=== PATIENT | female | born 2000 | race Caucasian/White ===

== ENCOUNTER 2019-12-06 14:59 | Emergency (ER) | payer SELFPAY ==
[2019-12-06 15:11] VITALS: TEMP 98.5; BMI 18.9
--- NOTE | 2019-12-06 15:13 | PDOC ---
History of Present Illness - General Chief Complaint: Vaginal Bleeding Stated Complaint: Vaginal Bleeding Time Seen by Provider: 12/06/19 15:12 - History of Present Illness Initial Comments: 12/06/19 15:28 19 yo F A1 currently around 5w6d (LMP 10/16/2019), PMH asthma, presenting with vaginal bleeding. Notably, patient was seen yesterday at [facility] emergency room with vaginal spotting, which is when she found out that she was . Beta-hCG was 3180 and she had a gestational sac with no pole, causing concern for threatened . Today, she was having a bowel movement when she passed a large clot. She grew concerned that it might be the fetus, so she came into the emergency room. Notes that she was diagnosed with ringworm in her left arm yesterday, but the medication was sent to a pharmacy in [place] and she lives in [place]. Asks that we send the script again. Denies CP, SOB, abd pain, urinary symptoms, DEXTER, N/V, fevers/chills, constipation /diarrhea. Not actively bleeding currently. Past History - Past Medical History Allergies/Adverse Reactions: Allergies Allergy/AdvReac Type Severity Reaction Status Date / Time No Known Allergies Allergy Verified 12/06/19 15:08 Home Medications: Ambulatory Orders Clotrimazole [Ringworm] 14.2 gm TP BID #1 cream..g. 12/06/19 CVA: No COPD: No - Psycho Social/Smoking Cessation Hx Smoking History: Never smoked Review of Systems - Review of Systems Comments:: 12/06/19 15:31 GENERAL/CONSTITUTIONAL: No fever or chills. No weakness. HEAD, EYES, EARS, NOSE AND THROAT: No change in vision. No ear pain or discharge. No sore throat. CARDIOVASCULAR: No chest pain or shortness of breath. RESPIRATORY: No cough, wheezing, or hemoptysis. GASTROINTESTINAL: No nausea, vomiting, diarrhea or constipation. GENITOURINARY: No dysuria, frequency, or change in urination. Passed vaginal clots. MUSCULOSKELETAL: No joint or muscle swelling or pain. No neck or back pain. SKIN: No rash NEUROLOGIC: No headache, vertigo, loss of consciousness, or change in strength/ sensation. ENDOCRINE: No increased thirst. No abnormal weight change. HEMATOLOGIC/LYMPHATIC: No anemia, easy bleeding, or history of blood clots. ALLERGIC/IMMUNOLOGIC: No hives or skin allergy *Physical Exam - Vital Signs Last Vital Signs Temp Pulse Resp BP Pulse Ox 98.5 F 74 16 100/61 100 12/06/19 15:09 12/06/19 15:09 12/06/19 15:09 12/06/19 15:09 12/06/19 15:09 - Physical Exam 12/06/19 15:32 Gen: well-developed, well-nourished, NAD Neuro: AAOX4, CN II-XII intact, FTN intact, EOMI, PERRLA, 5/5 strength, SILT HEENT: atraumatic, normocephalic, dry mucous membranes Neck: trachea midline, supple CV: regular rate, regular rhythm, no murmurs, rubs, or gallops Pulm: CTA b/l, no wheezing Abd: soft, non-distended, non-tender : pooled blood in the vault, closed os, no CMT or adnexal tenderness MSK: full ROM, intact pulses Extr: no edema, no deformities Skin: warm, dry, ringworm in L proximal arm ED Treatment Course - LABORATORY CBC & Chemistry Diagram: 12/06/19 15:54 12/06/19 15:54 Medical Decision Making - Medical Decision Making 12/06/19 15:33 Concern for potential complete . - CBC, CMP - Beta-hCG quant - UA/UC - TVUS - antifungal treatment for ringworm - likely dc for OBGYN follow up 12/06/19 16:52 Beta-hCG 1778.3, lower than yesterday, consistent with . Will get TVUS to confirm passage of gestational sac. 12/06/19 17:17 Blood type is O positive, Rho Lena not needed. 12/06/19 19:16 TVUS without intrauterine . Will dc with OBGYN follow-up. Discharge - Discharge Information Problems reviewed: Yes Clinical Impression/Diagnosis: Miscarriage Condition: Stable Disposition: HOME - Additional Discharge Information Prescriptions: Clotrimazole [Ringworm] 14.2 gm TP BID #1 cream..g. - Follow up/Referral Referrals: Shabbir Vaughn MD [Staff Physician] - - Patient Discharge Instructions Patient Printed Discharge Instructions: DI for Miscarriage Additional Instructions: You were seen with vaginal bleeding. Your labs were concerning for a downtrending beta-hCG, concerning for a miscarriage. Your ultrasound did not show a fetus inside the uterus, consistent with a miscarriage. Please follow up with your primary care doctor and your OBGYN within one week. Return to the ED if you develop worsening symptoms. - Post Discharge Activity
[2019-12-06 15:59] LABS: BASO % 0.5 % (0-2.0); EOS % 1.7 % (0-4.5); HEMATOCRIT 37.1 % (32.4-45.2); HEMOGLOBIN 12.3 GM/dL (10.7-15.3); LYMPH % 38.9 % (8-40); MCH 30.7 pg (25.7-33.7); MCHC 33.1 g/dl (32.0-36.0); MEAN CELL VOLUME 92.8 fl (80-96); MEAN PLT VOLUME 9.4 fl (7.5-11.1); MONO % 7.8 % (3.8-10.2); NEUT % 51.1 % (42.8-82.8); PLATELET COUNT 263 K/MM3 (134-434); RBC 3.99 M/mm3 (3.60-5.2); RDW 13.6 % (11.6-15.6); WHITE BLOOD COUNT 6.9 K/mm3 (4.0-10.0)
[2019-12-06 16:01] LABS: EPI CELLS 3.6 /HPF (0-5/HPF); HYALINE CASTS 6 /lpf (0-8); URINE APPEARANCE CLEAR; URINE BACTERIA 9.5 /hpf (NEGATIVE); URINE BILIRUBIN NEGATIVE (NEGATIVE); URINE COLOR YELLOW; URINE GLUCOSE (UA) NEGATIVE (NEGATIVE); URINE KETONE NEGATIVE (NEGATIVE); URINE LEUK ESTERASE NEGATIVE (NEGATIVE); URINE NITRITE NEGATIVE (NEGATIVE); URINE PROTEIN TRACE (NEGATIVE); URINE RBC 231 /hpf (0-4); URINE WBC 3 /hpf (0-5)
--- NOTE | 2019-12-06 16:09 | PDOC ---
Attending Attestation - Resident Resident Name: GarnerGreg persaud - ED Attending Attestation I have performed the following: I have examined & evaluated the patient, The case was reviewed & discussed with the resident, I agree w/resident's findings & plan, Exceptions are as noted - HPI HPI: 12/06/19 16:05 19 F , @ 5w6d, presenting to ED with vaginal bleeding. Pt was seen at [facility] yesterday for spotting, was found to be with HCG 3180. TVUS showed yolk sac with no pole. Pt states that today she had increased bleeding and passage of clot. Notes lower abdominal cramps that feel like her usual menstrual period. Denies F/C. Denies flank pain. Denies dysuria. - Physicial Exam PE: 12/06/19 16:08 "GENERAL: Awake, alert, and fully oriented, in no acute distress. HEAD: No signs of trauma EYES: PERRLA, EOMI, sclera anicteric, conjunctiva clear ENT: Auricles normal inspection, hearing grossly normal, nares patent, oropharynx clear without exudates. Moist mucosa NECK: Nontender, no stepoffs, Normal ROM, supple, no lymphadenopathy, JVD, or masses LUNGS: Breath sounds equal, clear to auscultation bilaterally. No wheezes, and no crackles HEART: Regular rate and rhythm, normal S1 and S2, no murmurs, rubs or gallops ABDOMEN: Soft, nontender, normoactive bowel sounds. No guarding, no rebound. No masses EXTREMITIES: Normal range of motion, no edema. No clubbing or cyanosis. No cords, erythema, or tenderness NEUROLOGICAL: Cranial nerves II through XII intact. 5/5 strength and sensation in all extremities, Normal speech, normal gait, normal cerebellar function SKIN: Warm, Dry, normal turgor, no rashes or lesions noted. - Medical Decision Making 12/06/19 16:09 19 F with vaginal bleeding at 6 wks. Likely spontaneous ab. - Labs, HCG, T&S - TVUS Labs wnl TVUS unremarkable HCG downtrending, likely spontaneous Pt is well appearing, with normal vitals. Clinically stable for DC at this time. I discussed the physical exam findings, ancillary test results and final diagnoses with the patient. I answered all of the patient's questions. The patient was satisfied with the care received and felt comfortable with the discharge plan and treatment plan. The patient agrees to follow up with the primary care physician within 24-72 hours.
[2019-12-06 16:50] LABS: ALBUMIN 3.6 g/dl (3.4-5.0); BILIRUBIN,TOTAL 0.2 mg/dL (0.2-1); BLOOD UREA NITROGEN 7.2 mg/dL (7-18); CALCIUM 8.4 mg/dL (8.5-10.1); CREATININE 0.5 mg/dL (0.55-1.3); POTASSIUM 3.6 mmol/L (3.5-5.1); TOT PROT 7.3 g/dl (6.4-8.2)
[2019-12-06 19:35] VITALS: BP 105/74; PULSE 82
== END 2019-12-06 19:34 | disposition home or self-care (01) ==
LOC: JER 14:59
DX: O26.891 Other specified pregnancy related conditions, first trimester (principal); O02.1 Missed abortion; Z3A.01 Less than 8 weeks gestation of pregnancy; B35.8 Other dermatophytoses
CPT/HCPCS: 36415; 76817-TC; 80053; 81003; 84702; 84703; 85025; 86850; 86900; 86901; 87086; 99283-25

== ENCOUNTER 2020-08-13 19:47 | Emergency (ER) | payer OTHER ==
--- OUTSIDE RECORDS SUMMARY | 2020-08-13 20:02 | XMS ---
:2000 Author Organization [facility] Care Team Providers Name Role Phone FINN ALVAREZ Unavailable Unavailable Re-disclosure Warning The records that you are about to access may contain information from federally- assisted alcohol or drug abuse programs. If such information is present, then the following federally mandated warning applies: This information has been disclosed to you from records protected by federal confidentiality rules (42 CFR part 2). The federal rules prohibit you from making any further disclosure of this information unless further disclosure is expressly permitted by the written consent of the person to whom it pertains or as otherwise permitted by 42 CFR part 2. A general authorization for the release of medical or other information is NOT sufficient for this purpose. The Federal rules restrict any use of the information to criminally investigate or prosecute any alcohol or drug abuse patient.The records that you are about to access may contain highly sensitive health information, the redisclosure of which is protected by Article 27-F of the [facility] Public Health law. If you continue you may haveaccess to information: Regarding HIV / AIDS; Provided by facilities licensed or operated by the [facility] Office of Mental Health; or Provided by the [facility] Office for People With Developmental Disabilities. If such information is present, then the following [facility] mandated warning applies: This information has been disclosed to you from confidential records which are protected by state law. State law prohibits you from making any further disclosure of this information without the specific written consent of the person to whom it pertains, or as otherwise permitted by law. Any unauthorized further disclosure in violation of state law may result in a fine or longterm sentence or both. A general authorization for the release of medical or other information is NOT sufficient authorization for further disclosure. Encounters Encounter Providers Location Date Indications Data Source(s ) Outpatient Attender: ANTONIO 05/13/2020 W10.8XXA [facility] PATRICEAdmitter: 11:45:00 PM Health Care FINN ALVAREZ EDT - Corpora tion 05/14/2020 05:40:00 PM EDT W10.8XXA Emergency H 06/18/2019 01:26:00 AM EDT [facility] Medications Medication Brand Start Product Dose Route Administrative Pharmacy [facility] Indications Reaction Description Data Name Date Form Instructions Instructions Source(s) Potassium Potass UNK active Potassiu m [place] Chloride 1 ium 2019 meq Chloride 10 r [facility] Chlor 12:33: mEq/100 mL Healt h de 1 41 AM Injection 10 Care EDT meq IVPB Corporatio n Medication administered onsite Potassium Potassium 05/14/2020 40 UNK active P otassium [place] Chloride O Chloride O 12:33:13 AM meq C hloride [facility] EDT Oral 40 meq Care PO Corporation Medication administered onsite Lidocaine lidocaine HCl 10 mL completed Lidocaine [facility] Hydrochloride 20 (Lidocaine Vi scous Medical MG/ML Mucous Viscous) 2 % Center Membrane Topical Solution, Solution Ordered By: lidocaine HCl Sergo Hilton, (Lidocaine MDDirections: 10 Viscous) 2 % mL oral twice a Solution, day PRN pain Ordered By: Sergo Hilton MDDirections: 10 mL oral twice a day PRN pain Ibuprofen 600 MG ibuprofen 600 mg 1 completed [facility] Oral Tablet Tablet, Ordered Medical ibuprofen 600 mg By: Serog Austin Tablet, Ordered Yobani, By: Sergo MDDirections: 1 Yobani, tablet oral MDDirections: 1 every six hours tablet oral PRN pain every six hours PRN pain terconazole 4 Terconazole [0.4 completed [place] MG/ML Vaginal % Cream]: 1 [facility] Cream Application Care Terconazole [0.4 Vaginal BEDTIME Corporation % Cream]: 1 Application Vaginal BEDTIME Vitamin [id number] completed [place] ( [facility] Johbtxlm-Yj-Lnf- Car e Fe-FA) [Tablet]: Cor poration 1 Tablet Oral DAILY Acetaminophen Acetaminophen completed [place] 325 MG Oral [325 mg Tablet]: [facility] Tablet 650 MG Oral Care Acetaminophen Q6HPRN PRN Pain Corporation [325 mg Tablet]: 650 MG Oral Q6HPRN PRN Pain Azithromycin 250 AZITHromycin 250 1 completed [facility] Ann MG Oral Tablet mg Tablet, Medical AZITHromycin 250 Ordered By: Center mg Tablet, Sergo Hilton, Ordered By: MDDirections: 1 Omiel Hilton, tablet oral MDDirections: 1 daily tablet oral daily Insurance Providers Payer name Policy type Policy ID Covered Covered democrat's Policy P dotty / Coverage democrat ID relationship to [facility] type [facility] [employer] [id number] SP [id number] R UNK UNK UNK UNK UNK UNK SELF PAY SP INSURANCE HMO CARL O [id number] [employer] Problems, Conditions, and Diagnoses Code Display Name Description Problem Type Effective Data Sour ce(s) Dates Z20.828 Contact with and CONTACT W [facility] TO OTH 11:45:00 PM [facility] exposure to other VIRAL EDT Care viral communicable COMMUNICABLE Rand oration diseases DISEASES J45.909 Unspecified UNSPECIFIED Diagnosis 05/13/2020 [place] asthma, ASTHMA, 11:45:00 [facility] uncomplicated UNCOMPLICATED EDT Care [place] Y99.8 Other external OTHER EXTERNAL Diagnosis 05/13/2020 [facility] cause status CAUSE STATUS 11:45:00 PM Critical access hospital EDT Care [facility] Y92.89 Other specified OTH PLACES THE Diagnosis 05/13/[facility] OF 11:45:[address] [facility] [address] of OCCURRENCE OF THE EDT Care occurrence of the EXTERNAL CAUSE Cor poration external cause W10.9XXA Fall (on) (from) FALL (ON) (FROM) Diagnosis 05/13/2020 [facility] unspecified stairs UNSPECIFIED 11:45:00 PM Coun ty Health and steps, initial STAIRS AND STEPS, EDT Care encounter INIT [employer] Z3A.22 22 weeks gestation 22 WEEKS Diagnosis 05/13/2020 [place] al[place]andra of GESTATION OF 11:45:00 PM [facility] brandi EDT Care [place] R10.32 Left lower LEFT LOWER Diagnosis 05/13/2020 [place] quadrant pain QUADRANT PAIN 11:45:00 PM [facility] EDT Care [place] S93.401A Sprain of SPRAIN OF Diagnosis 05/13/2020 [place] unspecified UNSPECIFIED 11:45:00 PM [facility] Heal th ligament of right LIGAMENT OF RIGHT EDT Care ankle, initial ANKLE, INIT Corporati on encounter ENCNTR O26.892 Other specified OTH Diagnosis 05/13/2020 [facility] related RELATED 11:45:00 PM [facility] conditions, second CONDITIONS, EDT Care trimester SECOND TRIMESTER Corporat ion T14.90XA Injury, INJURY, Diagnosis 05/13/2020 [place] unspecified, UNSPECIFIED, 11:45:00 PM [facility] brandi initial encounter INITIAL ENCOUNTER EDT Care [place] J02.9 Acute pharyngitis, ACUTE Diagnosis 06/18/2019 [facility] unspecified PHARYNGITIS, 01:26:00 AM Medical Ce nter UNSPECIFIED EDT R50.9 Fever, unspecified FEVER, Diagnosis 06/18/2019 [place] UNSPECIFIED 01:26:00 AM Medical Cent er EDT Results ID Date Data Source [id number] 05/14/2020 02:55:00 PM EDT [facility] [id number] Corporation Name Value Range Interpretation Description Data Sup porting Code Source(s) Document(s ) Leukocytes 6.4 k/mm3 4.5-11 <td> 05/14/2020 [place] [#/volume] in .5 14:55</td><td> [facility] Blood by k/mm3 WBC </td><td> Health Care Automated count Corporation 6.4
(4.5-11.5) k/mm3 </td> Erythrocyte 94.8 fL 80.0-9 <td> 05/14/2020 [place] mean 6.0 fL 14:55</td><td> [facility] corpuscular MCV </td><td> Health Care volume [Entitic Corporation volume] by 94.8 Automated count
(80.0-96.0) fL </td> Erythrocyte 33.4 % 32.0-3 <td> 05/14/2020 [place] mean 6.0 % 14:55</td><td> County corpuscular MCHC </td><td> Health Care hemoglobin Corporation concentration 33.4 [Mass/volume] in Blood from
Fetus by (32.0-36.0) % Automated count </td> Erythrocytes 3.63 m/mm3 3.60-5 <td> 05/14/2020 [facility] r [#/volume] in .10 14:55</td><td> County Blood m/mm3 RBC </td><td> Health Care Spritz 3.63
(3.60-5.10) m/mm3 </td> Hemoglobin 11.5 g/dL 11.5-1 <td> 05/14/2020 [place] [Mass/volume] 4.5 14:55</td><td> [facility] in Blood g/dL HGB </td><td> Health Care Spritz 11.5
(11.5-14.5) g/dL </td> Erythrocyte 12.9 % 11.5-1 <td> 05/14/2020 [place] distribution 4.5 % 14:55</td><td> County width [Entitic RDW </td><td> Health Car e volume] by Spritz Automated count 12.9
(11.5-14.5) % </td> Hematocrit 34.4 % 36.0-4 <td> 05/14/2020 [place] [Volume 7.0 % 14:55</td><td> County Fraction] of HCT Health Care Blood by </td><td><Kiio Automated count raph styleCode="Bold "> 34.4 L </paragraph>
(36.0-47.0) % </td> Erythrocyte 31.7 pg 27.0-3 <td> 05/14/2020 [place] mean 1.5 pg 14:55</td><td> County corpuscular MCH Health Care hemoglobin </td><td><Kiio [Entitic mass] raph by Automated styleCode="Bold count "> 31.7 H </paragraph>
(27.0-31.5) pg </td> Monocytes/Leuko 6.1 % 0.0-11 <td> 05/14/2020 [facility] cytes [Pure .0 % 14:55</td><td> County number Monocytes. Health Care fraction] in </td><td> Corporation Blood by Automated count 6.1
(0.0-11.0) % </td> Lymphocytes 33.7 % 18.0-5 <td> 05/14/2020 [place] [#/volume] in 3.0 % 14:55</td><td> [facility] Blood by Lymphocytes [facility] Care Automated count </td><td> Spritz 33.7
(18.0-53.0) % </td> Platelets 256 k/mm3 160-41 <td> 05/14/2020 [place] [#/volume] in 0 14:55</td><td> [facility] Blood by k/mm3 Platelet Count Health Care Automated count </td><td> Spritz 256
(160-410) k/mm3 </td> Basophils 0.2 % 0.0-2. <td> 05/14/2020 [place] [#/volume] in 0 % 14:55</td><td> [facility] Blood by Basophils [facility] Care Automated count </td><td> Spritz 0.2
(0.0-2.0) % </td> Basophils+Eosin 0.9 % 0.0-5. <td> 05/14/2020 [facility] ophils+Monocyte 0 % 14:55</td><td> County s [#/volume] in Eosinophils Health Care Blood by </td><td> Spritz Automated count 0.9
(0.0-5.0) % </td> Platelet mean 10.5 fL 9.8-12 <td> 05/14/2020 [facility] r volume [Entitic .8 fL 14:55</td><td> County volume] in MPV </td><td> Health Care Blood by Spritz Automated count 10.5
(9.8-12.8) fL </td> Potassium 4.2 mEq/L 3.5-5. <td> 05/14/2020 [place] [Moles/volume] 1 14:55</td><td> County in Serum or mEq/L Potassium-Serum Health Care Plasma </td><td> Spritz 4.2
(3.5-5.1) mEq/L
Note Significant Change in Values

(3.5-5.1) mEq/L </td> Sodium 136 mEq/L 135-14 <td> 05/14/2020 [place] [Moles/volume] 5 14:55</td><td> County in Serum or mEq/L Sodium-Serum Health Care Plasma </td><td> Spritz 136
(135-145) mEq/L </td> Neutrophils [#] 58.8 % 36.0-7 <td> 05/14/2020 [facility] in Body fluid 3.0 % 14:55</td><td> County by Manual count Neutrophils Health Care </td><td> Spritz 58.8
(36.0-73.0) % </td> Chloride 109 mEq/L 98-107 <td> 05/14/2020 [place] [Moles/volume] mEq/L 14:55</td><td> County in Serum or Chloride Health Care Plasma </td><td><dilia Spritz raph styleCode="Bold "> 109 H </paragraph>
(98-107) mEq/L </td> Immature 0.3 % 0.0-0. <td> 05/14/2020 [place] granulocytes/10 5 % 14:55</td><td> County 0 leukocytes in IG% </td><td> [facility] re Blood by Spritz Automated count 0.3
(0.0-0.5) %
The IG fraction represents metamyelocytes, myelocytes and/or
promyelocytes and is only reported as part of the automated
differential when found at a percentage of less than 6.
If higher than 6%, a manual differential will be performed.

(0.0-0.5) % </td> Glucose 87 mg/dL 70-105 <td> 05/14/2020 [place] [Mass/volume] mg/dL 14:55</td><td> County in Blood Glucose-Serum Health Care </td><td> Corporation 87
(70-105) mg/dL </td> Aspartate 14 U/L 4-35 <td> 05/14/2020 [place] aminotransferas U/L 14:55</td><td> County e [Enzymatic AST (SGOT) Health Care activity/volume </td><td> Spritz ] in Serum or Plasma 14
(4-35) U/L </td> Bilirubin.total < 0.2 <td> 05/14/2020 [facility] [Mass/volume] 14:55</td><td> County in Blood Bilirubin - Health Care Total Corporation </td><td> < 0.2
(0.2-1.3) mg/dL </td> Creatinine 0.58 mg/dL 0.57-1 <td> 05/14/2020 [place] [Moles/volume] .11 14:55</td><td> County in Serum or mg/dL Creatinine. Health Care Plasma </td><td> Spritz 0.58
(0.57-1.11) mg/dL </td> Urea nitrogen 4 mg/dL 6-22 <td> 05/14/2020 [facility] r [Mass/volume] mg/dL 14:55</td><td> County in Blood BUN Health Care </td><td><Kiio raph styleCode="Bold "> 4 L </paragraph>
(6-22) mg/dL </td> Carbon dioxide, 21 mEq/L 22-30 <td> 05/14/2020 [facility] total mEq/L 14:55</td><td> [facility] [Moles/volume] CO2 Health Care in Serum or </td><td><Kiio Plasma raph styleCode="Bold "> 21 L </paragraph>
(22-30) mEq/L </td> Alanine 11 U/L 6-55 <td> 05/14/2020 [place] aminotransferas U/L 14:55</td><td> County e [Enzymatic ALT (SGPT) Health Care activity/volume </td><td> Spritz ] in Serum or Plasma 11
(6-55) U/L </td> Anion gap in 6 mEq/L 7-13 <td> 05/14/2020 [place] Serum or Plasma mEq/L 14:55</td><td> [facility] Anion Gap Health Care </td><td><Kiio raph styleCode="Bold "> 6 L </paragraph>
(7-13) mEq/L </td> Hemolysis index No <td> 05/14/2020 [facility] of Serum or Hemolysis 14:55</td><td> [facility] Plasma Hemolysis Index Health Care </td><td> [place] No Hemolysis
</td> Globulin 3.2 gm/dL 2.9-4. <td> 05/14/2020 [place] [Mass/volume] 0 14:55</td><td> [facility] in Serum gm/dL Globulin Health Care </td><td> Sp[place] 3.2
(2.9-4.0) gm/dL </td> Proteins - 6.2 g/dL 5.6-7. <td> 05/14/2020 [place] Total 5 g/dL 14:55</td><td> [facility] Proteins - Health Care Total Corporation </td><td> 6.2
(5.6-7.5) g/dL </td> Calcium 8.5 mg/dL 8.6-10 <td> 05/14/2020 [place] [Mass/volume] .2 14:55</td><td> [facility] in Blood mg/dL Calcium Health Care </td><td><Kiio raph styleCode="Bold "> 8.5 L </paragraph>
(8.6-10.2) mg/dL </td> Albumin 3.0 g/dL 3.4-4. <td> 05/14/2020 [place] [Mass/volume] 8 g/dL 14:55</td><td> County in Serum or Albumin Health Care Plasma </td><td><dilia Corporation raph styleCode="Bold "> 3.0 L </paragraph>
(3.4-4.8) g/dL </td> Icteric index Not <td> 05/14/2020 [facility] r of Serum or Icteric 14:55</td><td> [facility] Plasma Icteric Index Health Care </td><td> [facility] Not Icteric
</td> Prothrombin 11.9 secs 9.8-12 <td> 05/13/2020 [place] time (PT) .0 23:10</td><td> [facility] secs Prothrombin Health Care Time. [facility] </td><td> 11.9
(9.8-12.0) secs </td> Lipemic index No Lipemia <td> 05/14/2020 [facility] er of Serum or 14:55</td><td> [facility] Plasma Lipemia Index Health Care </td><td> [facility] No Lipemia
</td> Phosphate 3.4 mg/dL 2.3-4. <td> 05/14/2020 [place] [Mass/volume] 7 14:55</td><td> County in Serum or mg/dL Inorganic Health Care Plasma Phosphorus [facility] </td><td> 3.4
(2.3-4.7) mg/dL </td> Amylase 26 U/L 22-100 <td> 05/13/2020 [place] [Enzymatic U/L 23:10</td><td> County activity/volume Amylase Level Health Car e ] in Serum or </td><td> Corporation Plasma 26
(22-100) U/L </td> aPTT panel - 39.6 secs 25.0-3 <td> 05/13/2020 [place] Platelet poor 2.0 23:10</td><td> [facility] plasma secs Partial [facility] Care Thromboplastin [facility] Time </td><td><dilia raph styleCode="Bold "> 39.6 H </paragraph>
(25.0-32.0) secs </td> Magnesium 1.6 mg/dL 1.6-2. <td> 05/14/2020 [place] [Mass/volume] 6 14:55</td><td> County in Serum or mg/dL Magnesium Level Health Care Plasma </td><td> Corporation 1.6
(1.6-2.6) mg/dL </td> ID Date Data Source [id number] 05/13/2020 11:00:00 PM EDT [facility] [id number] Corporation Name Value Range Interpretation Description Data Source(s ) Supporting Code Document(s ) ABO-Rh Type O POS <td> [place] 05/13/2020 [facility] 23:00</td><td> Care ABO-Rh Type Corporation </td><td> O POS
</td> Antibody NEG <td> [place] Screen 05/13/2020 [facility] 23:00</td><td> Care Antibody Corporation Screen </td><td> NEG
</td> Specimen 05/16/20 <td> [place] expiration 20 23:59 05/13/2020 [facility] date of Blood 23:00</td><td> Care Specimen Corporation Expiration Date </td><td> 05/16/2020 23:59
</td> ID Date Data Source [id number] 05/13/2020 12:00:00 AM EDT [facility] Name Value Range Interpretation Code Description Data Sandy rce(s) Supporting Document(s ) SARS-COV-2 [place] RNA RT-PCR [facility] This lab was ordered by [facility] and reported by [facility]. ID Date Data Source [id number] 06/18/2019 02:05:00 AM EDT [facility] Name Value Range Interpretation Description Data Sup porting Code Source(s) Document(s ) UNK <item><[facility]an [facility] styleCode="[facility] Medical ld">Culture Center Status </content>
<table><tbo dy><tr><td>Sp ecimen Number:</td>< td>[id number]< /td></tr><tr> <td>Sample Collection Date/Time: </td><td>06/18 2:05 AM</td></tr>< tr><td>Specim en Source:</td>< td>THROAT</td ></tr><tr><td >Culture Report:</td>< td>Culture in progress </td></tr><tr ><td>Throat-N ose Culture:</td> <td>Collectio n Plate Date: 06/18/2019 02:12 </td></tr><tr ><td>Culture Status:</td>< td>Preliminar y </td></tr></t body></table> </item> UNK <item><conten [facility] styleCode="[facility] Medical ld">Culture Center Report </content>
<table><tbo dy><tr><td>Sp ecimen Number:</td>< td>[id number]< /td></tr><tr> <td>Sample Collection Date/Time: </td><td>06/18 2:05 AM</td></tr>< tr><td>Specim en Source:</td>< td>THROAT</td ></tr><tr><td >Throat-Nose Culture:</td> <td>Collectio n Plate Date: 06/18/2019 02:12 </td></tr><tr ><td>Culture Status:</td>< td>Preliminar y </td></tr><tr ><td>Culture Report:</td>< td>Culture in progress </td></tr></t body></table> </item> Streptococcus NEGATIVE <item><eleni [place]arez [Presence] in styleCode="[facility] Medical Unspecified ld">Rapid Center specimen by Strep A Immunoassay </content>
<table><tbo dy><tr><td>Sp ecimen Number:</td>< td>[id number]< /td></tr><tr> <td>Sample Collection Date/Time: </td><td>06/18 2:05 AM</td></tr>< tr><td>Specim en Source:</td>< td>THROAT</td ></tr><tr><td >Rapid Strep A:</td><td>NE GATIVE </td></tr></t body></table> </item> Procedure Social History Code Duration Value Status Description Data Source(s ) Smoking 06/18/2019 Denies Ever completed Denies Ever Smoked [facility] 01:53:00 AM EDT Smoked Medical C enter Smoking 06/18/2019 Denies Ever completed Denies Ever Smoked [facility] 01:31:00 AM EDT Smoked Medical C enter Smoking Never smoker completed Never smoker [facility] Vital Signs ID Date Data Source UNK Name Value Range Interpretation Code Description Data Source(s) Diastolic blood 55 {} Normal (applies to 55 {} [place] pressure non-numeric results) Coun ty Health Care Corporati on Systolic blood 81 {} Normal (applies to 81 {} [place] pressure non-numeric results) Coun ty Health Care Corporati on First Respiration 18.0000 {} Normal (applies to 18.0000 {} [place] rate Set non-numeric results) Coun ty Health Care Corporati on Heart rate 69.0000 {} Normal (applies to 69.0000 {} [place] alessandra non-numeric results) Coun ty Health Care Corporati on Body temperature 97.4000 {} Normal (applies to 97.4000 {} [place] non-numeric results) Coun ty Health Care Corporati on wt - obtain Normal (applies to {} [facility] non-numeric results) Coun ty Health Care Corporati on weight - kg 55.9000 {} Normal (applies to 55.9000 {} [facility] non-numeric results) Coun ty Health Care Corporati on Body temperature 37.256336 37.891705 [facility] Respiratory rate 18 /min 18 /min [facility] Oxygen saturation 98 % 98 % [facility] in Arterial blood Medical Center by Pulse oximetry Heart rate 78 /min 78 /min [facility] Diastolic blood 98 mm[Hg] 98 mm[Hg] [facility] pressure Medical Center Systolic blood 128 mm[Hg] 128 mm[Hg] [facility] pressure Medical Center Body weight 58.569317 58.668648 kg [facility] Measured kg Medical Center Body temperature 37.459032 37.857563 [facility] Respiratory rate 19 /min 19 /min [facility] Oxygen saturation 100 % 100 % [facility] in Arterial blood Medical Center by Pulse oximetry Heart rate 88 /min 88 /min [facility] Diastolic blood 72 mm[Hg] 72 mm[Hg] [facility] pressure [facility] [place] Systolic blood 129 mm[Hg] 129 mm[Hg] [facility] pressure [facility] [place] Patient Treatment Plan of Care Planned Activity Planned Date Details Description Data Source (s) Potassium Chloride 1 05/14/2020 [facility] 12:33:41 AM Familytic Potassium Chloride O 05/14/2020 [facility] 12:33:13 AM Familytic Ibuprofen 600 MG Oral [facility] Lidocaine Hydrochloride [facility] Medical 20 MG/ML Mucous Membrane Dariana ter Topical Solution Azithromycin 250 MG Oral [facility]
[2020-08-13 20:18] VITALS: BMI 24.0
[2020-08-13] MEDS ORDERED: ACETAMINOPHEN INJECTION 100 ML IVPB ONE (20:20)
--- NOTE | 2020-08-13 20:24 | PDOC ---
History of Present Illness - General Chief Complaint: Syncope/Near Syncope Stated Complaint: PREG/FAINTED - History of Present Illness Initial Comments: HPI Pt is a 19yo F with PMH asthma who presents following syncopal episode. As per history provided by boyfriend - pt was walking in the store with him when she felt lightheaded and sat down. He brought her water after which she stood up and collapsed. At the time patient was reporting SOB, but boyfriend states that she has been SOB over the past few days. Pt states that earlier today she ate popeyes and drank a cup of red wine. Reports episode of NBNB emesis yesterday morning, denies further n/v. Reports history of low blood pressure and positional lightheadedness, denies history of syncopal episodes. Denies f/c, chest pain, States that her thus far has been uncomplicated. OB: [place] PMH: asthma PSH: denies Meds: vitamins Allergies: NKDA Social: denies tobacco, illicit drug use Review of Systems CONSTITUTIONAL: denies fever, chills, generalized weakness, malaise, loss of appetite HEENT: denies rhinorrhea, nasal congestion, sore throat, visual changes CARDIOVASCULAR: reports lightheadedness; denies chest pain, palpitations, irregular heart rate RESPIRATORY: reports SOB during episode; denies cough, wheezing, hemoptysis GASTROINTESTINAL: reports RLQ abdominal pain; denies nausea, vomiting, diarrhea, constipation, melena, hematochezia GENITOURINARY: denies dysuria, frequency, urgency, hesitancy, hematuria, flank pain, genital pain MUSCULOSKELETAL: reports back pain HEMATOLOGIC/IMMUNOLOGIC: denies easy bleeding, easy bruising NEUROLOGIC: denies headache, focal weakness or paresthesias, dizziness, unsteady gait, seizure, mental status changes, bladder or bowel incontinence SKIN: denies rash, itching, pallor PSYCHIATRIC: denies anxiety, depression, suicidal or homicidal ideation, hallucinations. Physical Exam General: awake, lethargic, in no acute distress, well developed, well nourished Head: normocephalic, atraumatic Eyes: PERRL, EOMI, anicteric sclera, conjunctiva clear ENT: hearing grossly normal, oropharynx clear without exudates, no nasal congestion, moist mucous membranes Neck: supple, normal ROM Lung: equal breath sounds b/l, CTA b/l, no crackles, wheezes; secretions requiring suctioning Heart: RRR, normal S1, S2, no murmurs appreciated Abdomen: soft, non tender, normoactive bowel sounds, no guarding, rebound, masses, left CVA tenderness Extremities: no edema, no erythema or tenderness, DP/PT pulses 2+ and symmetric Neuro: CN2-12 grossly intact, moves all extremities, normal speech, sensation intact Skin: warm, dry, normal skin turgor, capillary refill <2 seconds, no rashes or lesions noted MDM Pt is a 19yo F with PMH asthma who presents following syncopal episode. DDx including but not limited to: electrolyte abnormality, arrhythmia, Workup: labs, cxr, ekg TX: IV fluids EKG: normal sinus rhythm, HR 94bpm, GA 134ms, QRS 78ms, QTc 422ms On further reassessment, patient appears awake with increased alertness. States that she does not remember anything between walking in the store with her boyfriend to being at [facility]. Currently c/o back pain, will give Ofirmev. Labs: no leukocytosis, no anemia, normal VBG, electrolytes WNL, no LAURIE, LFT WNL, cardiac profile WNL UA with trace ketones UDS negative 08/13/20 21:56 Admission discussed with patient who agreed with plan Resident spoke with OB acetone button paster, Dr. Ramirez who recommended that patient go to tele floor. He will follow pt as consult Pt signed out to night team pending admission Disposition to be admitted Past History - Medical History Allergies/Adverse Reactions: Allergies Allergy/AdvReac Type Severity Reaction Status Date / Time No Known Allergies Allergy Verified 05/13/20 21:25 Home Medications: Ambulatory Orders Acetaminophen [Tylenol] 650 mg PO QID PRN #20 capsule 12/06/19 Clotrimazole [Ringworm] 14.2 gm TP BID #1 cream..g. 12/06/19 CVA: No COPD: No - Reproductive History Is Patient Now?: Yes (37 weeks) (#): 3 Para: 1 - Psycho-Social/Smoking History Smoking History: Never smoked Have you smoked in the past 12 months: No - Substance Abuse Hx (Audit-C & DAST Scrn) How often the patient has a drink containing alcohol: Monthly or less Number of drinks the patient has on a typical day: 1 or 2 How often the patient has six or more drinks on one occasion: Never Score: In Men: 4 or > Positive; In Women: 3 or > Positive: 1 Screen Result (Pos requires Nsg. Audit-10AR): Negative In the last yr the pt used illegal drug/Rx for NonMed reason: No Score: Yes response is considered Positive: 0 Screen Result (Positive result requires Nsg. DAST-10): Negative *Physical Exam - Vital Signs Last Vital Signs Temp Pulse Resp BP Pulse Ox 86 28 H 107/75 100 08/13/20 20:16 08/13/20 20:16 08/13/20 20:16 08/13/20 20:16 ED Treatment Course - LABORATORY CBC & Chemistry Diagram: 08/13/20 19:53 08/13/20 19:53 Discharge - Discharge Information Problems reviewed: Yes Clinical Impression/Diagnosis: Syncope Qualifiers: Syncope type: unspecified Qualified Code(s): R55 - Syncope and collapse Qualifiers: Weeks of gestation: 37 weeks Qualified Code(s): Z3A.37 - 37 weeks gestation of Condition: Stable Disposition: AGAINST MEDICAL ADVICE - Follow up/Referral - Patient Discharge Instructions - Post Discharge Activity
[2020-08-13 20:25] VITALS: TEMP 97.6
[2020-08-13] MEDS ORDERED: SODIUM CHLORIDE 0.9% 500 ML INFUS.BAG IV ONE (20:28)
[2020-08-13 20:35] LABS: BASO % 0.3 % (0-2.0); EOS % 0.5 % (0-4.5); HEMATOCRIT 35.9 % (32.4-45.2); HEMOGLOBIN 12.3 GM/dL (10.7-15.3); LYMPH % 32.6 % (8-40); MCH 32.4 pg (25.7-33.7); MCHC 34.3 g/dl (32.0-36.0); MEAN CELL VOLUME 94.3 fl (80-96); MEAN PLT VOLUME 9.4 fl (7.5-11.1); MONO % 5.7 % (3.8-10.2); NEUT % 60.9 % (42.8-82.8); PLATELET COUNT 231 K/MM3 (134-434); RDW 13.4 % (11.6-15.6); WHITE BLOOD COUNT 7.3 K/mm3 (4.0-10.0)
[2020-08-13 20:44] LABS: INR 0.97 (0.83-1.09); PROTHROMBIN TIME (PATIENT) 11.5 SEC (9.7-13.0)
--- NOTE | 2020-08-13 20:48 | PDOC ---
Attending Attestation - Resident Resident Name: Katina Araiza - ED Attending Attestation I have performed the following: I have examined & evaluated the patient, The case was reviewed & discussed with the resident, I agree w/resident's findings & plan, Exceptions are as noted - HPI HPI: 08/14/20 02:48 See resident HPI - Physicial Exam PE: 08/14/20 02:48 Agree with documented exam - Medical Decision Making 08/14/20 02:48 19F 37wk preg BIBEMS after witnessed syncopal episode, no convulsions, tongue biting, incontinence, denies toxic habits Broad ddx for syncope including cardiac, arrythmia, vasovagal, hypovolemia, tox f/u labs, ivf, continous monitor, re-eval tocography performed in ED, normal tracing dispo per clinical course, likely admit Note: The patient insists on leaving the emergency dept and is signing out against medical advice. The patient understands the risks and complications that may result from the refusal of medical care and admission which includes and permanent disability of herself and of her baby. The patient has the mental capacity of understanding the risks of refusing care and is capable of making an informed decision. The patient was instructed to return to the emergency department should she change her mind regarding medical care or should her condition worsen. The patient signed the Against Medical Advice form. Discharge - Discharge Information Problems reviewed: Yes Clinical Impression/Diagnosis: Syncope Qualifiers: Syncope type: unspecified Qualified Code(s): R55 - Syncope and collapse Qualifiers: Weeks of gestation: 37 weeks Qualified Code(s): Z3A.37 - 37 weeks gestation of Condition: Stable Disposition: AGAINST MEDICAL ADVICE - Follow up/Referral - Patient Discharge Instructions - Post Discharge Activity
[2020-08-13 20:58] LABS: COCAINE, UR NEGATIVE ng/ml (CUTOFF=300); OPIATES, URI NEGATIVE ng/ml (CUTOFF=300); PHENCYCLIDINE,URINE NEGATIVE ng/ml (CUTOFF=25); URINE AMPHETAMINES NEGATIVE ng/ml (CUTOFF=500); URINE BARBITURATES NEGATIVE ng/ml (CUTOFF=200); URINE BENZODIAZEPINES NEGATIVE ng/ml (CUTOFF=200)
[2020-08-13 20:59] LABS: VENOUS BASE EXCESS -5.3 mmol/L (-2-2); VENOUS O2 SATURATION 79.4 % (70-80); VENOUS PH 7.338 (7.310-7.410)
[2020-08-13 21:04] LABS: METHADONE, UR NEGATIVE ng/ml (CUTOFF=300)
[2020-08-13 21:06] LABS: PH,URINE 6.5 (5.0-8.0); URINE APPEARANCE CLOUDY; URINE BILIRUBIN NEGATIVE (NEGATIVE); URINE COLOR YELLOW; URINE GLUCOSE (UA) NEGATIVE (NEGATIVE); URINE KETONE TRACE (NEGATIVE); URINE LEUK ESTERASE NEGATIVE (NEGATIVE); URINE NITRITE NEGATIVE (NEGATIVE); URINE PROTEIN NEGATIVE (NEGATIVE); URINE UROBILINOGEN 0.2 mg/dL (0.2-1.0)
[2020-08-13 21:07] LABS: ALBUMIN 2.8 g/dl (3.4-5.0); ALK PHOS 108 U/L (45-117); ANION GAP 9 MMOL/L (8-16); BILIRUBIN,TOTAL 0.2 mg/dL (0.2-1); BLOOD UREA NITROGEN 9.7 mg/dL (7-18); CALCIUM 8.3 mg/dL (8.5-10.1); CHLORIDE 106 mmol/L (98-107); CO2 23 mmol/L (21-32); CREATININE 0.6 mg/dL (0.55-1.3); GLUCOSE,RANDOM 78 mg/dL (74-106); MAGNESIUM 1.9 mg/dL (1.8-2.4); POTASSIUM 3.7 mmol/L (3.5-5.1); SGOT/AST 17 U/L (15-37); SGPT/ALT 21 U/L (13-61); SODIUM 138 mmol/L (136-145); TOT PROT 7.3 g/dl (6.4-8.2)
[2020-08-13 23:30] VITALS: BP 97/63; PULSE 93
--- NOTE | 2020-08-14 00:38 | PDOC ---
*Physical Exam - Vital Signs Last Vital Signs Temp Pulse Resp BP Pulse Ox 97.6 F 93 H 18 97/63 98 08/13/20 20:25 08/13/20 23:29 08/13/20 23:29 08/13/20 23:29 08/13/20 23:29 ED Treatment Course - LABORATORY CBC & Chemistry Diagram: 08/13/20 19:53 08/13/20 19:53 - ADDITIONAL ORDERS Additional order review: Laboratory Results 08/13/20 08/13/20 08/13/20 19:53 19:53 19:53 PT with INR INR PTT (Actin FS) VBG pH POC VBG pCO2 POC VBG pO2 VBG HCO3 VBG O2 Sat (Mick) VBG Base Excess Sodium 138 Potassium 3.7 Chloride 106 Carbon Dioxide 23 Anion Gap 9 BUN 9.7 Creatinine 0.6 Est GFR (CKD-EPI)AfAm 152.08 Est GFR (CKD-EPI)NonAf 131.21 Random Glucose 78 Lactic Acid 2.0 Calcium 8.3 L Magnesium 1.9 Total Bilirubin 0.2 AST 17 ALT 21 Alkaline Phosphatase 108 Creatine Kinase 39 Troponin I < 0.02 Total Protein 7.3 Albumin 2.8 L TSH 0.59 Urine Color Urine Appearance Urine pH Ur Specific [place] Urine Protein Urine Glucose (UA) Urine Ketones Urine Blood Urine Nitrite Urine Bilirubin Urine Urobilinogen Ur Leukocyte Esterase Salicylates Opiates Screen Negative Methadone Screen Negative Acetaminophen Barbiturate Screen Negative Phencyclidine Screen Negative Ur Amphetamines Screen Negative MDMA (Ecstasy) Screen Negative Benzodiazepines Screen Negative Cocaine Screen Negative U Marijuana (THC) Screen Negative Alcohol, Quantitative < 3 08/13/20 08/13/20 08/13/20 19:53 19:53 19:53 PT with INR 11.50 INR 0.97 PTT (Actin FS) 28.0 VBG pH 7.338 POC VBG pCO2 38.0 POC VBG pO2 45.8 VBG HCO3 19.9 L VBG O2 Sat (Mick) 79.4 VBG Base Excess -5.3 L Sodium Potassium Chloride Carbon Dioxide Anion Gap BUN Creatinine Est GFR (CKD-EPI)AfAm Est GFR (CKD-EPI)NonAf Random Glucose Lactic Acid Calcium Magnesium Total Bilirubin AST ALT Alkaline Phosphatase Creatine Kinase Troponin I Total Protein Albumin TSH Urine Color Yellow Urine Appearance Cloudy Urine pH 6.5 Ur Specific [place] 1.015 Urine Protein Negative Urine Glucose (UA) Negative Urine Ketones Trace H Urine Blood Negative Urine Nitrite Negative Urine Bilirubin Negative Urine Urobilinogen 0.2 Ur Leukocyte Esterase Negative Salicylates Opiates Screen Methadone Screen Acetaminophen Barbiturate Screen Phencyclidine Screen Ur Amphetamines Screen MDMA (Ecstasy) Screen Benzodiazepines Screen Cocaine Screen U Marijuana (THC) Screen Alcohol, Quantitative 08/13/20 19:53 PT with INR INR PTT (Actin FS) VBG pH POC VBG pCO2 POC VBG pO2 VBG HCO3 VBG O2 Sat (Mick) VBG Base Excess Sodium Potassium Chloride Carbon Dioxide Anion Gap BUN Creatinine Est GFR (CKD-EPI)AfAm Est GFR (CKD-EPI)NonAf Random Glucose Lactic Acid Calcium Magnesium Total Bilirubin AST ALT Alkaline Phosphatase Creatine Kinase Troponin I Total Protein Albumin TSH Urine Color Urine Appearance Urine pH Ur Specific [place] Urine Protein Urine Glucose (UA) Urine Ketones Urine Blood Urine Nitrite Urine Bilirubin Urine Urobilinogen Ur Leukocyte Esterase Salicylates < 1.7 L Opiates Screen Methadone Screen Acetaminophen < 2.0 Barbiturate Screen Phencyclidine Screen Ur Amphetamines Screen MDMA (Ecstasy) Screen Benzodiazepines Screen Cocaine Screen U Marijuana (THC) Screen Alcohol, Quantitative 08/13/20 19:53 RBC 3.80 MCV 94.3 MCHC 34.3 RDW 13.4 MPV 9.4 Neutrophils % 60.9 Lymphocytes % 32.6 Monocytes % 5.7 Eosinophils % 0.5 Basophils % 0.3 - Medications Given in the ED: ED Medications Discontinued Medications Generic Name Dose Route Start Last Admin Trade Name Freq PRN Reason Stop Dose Admin Sodium Chloride 1,000 ml 08/13/20 20:28 08/13/20 20:30 Normal Saline - IV 08/13/20 20:29 1,000 ml ONCE ONE Administration Medical Decision Making - Medical Decision Making 08/14/20 00:40 19y F 37w gestation preseting for syncope. vitals wnl labs wnl. monitoring: NST started at 2250 by this RN. Baseline FHR 140 with accelerations. Some irritability noted with movement. PT on monitor for 30 min. 08/14/20 06:08 pt to be admitted for syncope work up. pt now refusing admission. benefits and risks discussed: , permanent disabililty, demise. pt verbalized understanding and wants to continue to sign out ama. pt has capacity. Discharge - Discharge Information Problems reviewed: Yes Clinical Impression/Diagnosis: Syncope Qualifiers: Syncope type: unspecified Qualified Code(s): R55 - Syncope and collapse Qualifiers: Weeks of gestation: 37 weeks Qualified Code(s): Z3A.37 - 37 weeks gestation of Condition: Stable Disposition: AGAINST MEDICAL ADVICE - Admission No - Follow up/Referral - Patient Discharge Instructions - Post Discharge Activity
--- NOTE | 2020-08-14 00:50 | PN ---
Teaching Attending Note Name of Resident: Ahsan Genao ATTENDING PHYSICIAN STATEMENT I saw and evaluated the patient. I reviewed the resident's note and discussed the case with the resident. I agree with the resident's findings and plan as documented. SUBJECTIVE: Patient is a 19 year old woman who is 37 weeks , with a PMH of A sthma who presents following syncopal episode. As per history provided by boyfriend - patient was walking in the store with him when she felt lightheaded and sat down. He brought her water after which she stood up and collapsed. At the time patient was reporting SOB, but boyfriend states that she has been SOB over the past few days. Patient states that earlier today she ate Popeyes and drank a cup of red wine. Reports episode of NBNB emesis yesterday morning, but none since then. Reports history of low blood pressure and positional lightheadedness, but no prior episodes of syncope. Does not have any memory of the syncopal episode. has thusfar been uncomplicated. Patient denies chest pain, abdominal pain, headache, palpitations, fever, chills, diarrhea, constipation, dysuria, fr equency, urgency, melena, hematochezia or hematuria. Denies alcohol, tobacco or illicit drug use. No sick contacts or recent travels. Family history is unremarkable. OBJECTIVE: Alert Vital Signs Period Temp Pulse Resp BP Sys/Brower Pulse Ox Last 24 Hr 97.6 F 86-100 18-28 97-110/63-83 98-100 HEENT: No Jaundice, eye redness or discharge, PERRLA, EOMI. Normocephalic, atraumatic. External ears are normal and hearing is grossly intact. No nasal discharge. Neck: Supple, nontender. No palpable adenopathy or thyromegaly. No JVD Chest: Good effort. Clear to auscultation and percussion. Heart: Regular. No S3, rub or murmur Abdomen: Not distended, soft, gravid uterus; nontender and no HSM. No rebound or guarding. Normal bowel sounds. Ext: Peripheral pulses intact. No leg edema. Skin: Warm and dry. No petechiae, rash or ecchymosis. Neuro: Alert. Oriented x3. CN 2-12 grossly intact. Sensation grossly intact in all four extremities and DTR are symmetric. Psych: Appropriate mood and affect. Good insight. Home Medications Medication Instructions Recorded Acetaminophen [Tylenol] 650 mg PO QID PRN #20 capsule 12/06/19 Clotrimazole [Ringworm] 14.2 gm TP BID #1 cream..g. 12/06/19 Abnormal Lab Results 08/13/20 08/13/20 08/13/20 19:53 19:53 19:53 VBG HCO3 19.9 L VBG Base Excess -5.3 L Calcium Albumin Urine Ketones Trace H Salicylates < 1.7 L 08/13/20 19:53 VBG HCO3 VBG Base Excess Calcium 8.3 L Albumin 2.8 L Urine Ketones Salicylates ASSESSMENT AND PLAN: 1. Syncope/37 weeks - Etiology unclear. EKG shows NSR at 94/minute and QTc [address]-T wave changes. Initial troponin is negative. Urine toxicology is negative. Will admit to telemetry, get ECHO, hydrate with IV NS, do neurochecks, implement fall/seizure precautions, consult Obstetrics/Neurology. Hypoalbuminemia likely partly dilutional due to . Viral testing for COVID-19 ordered and patient placed on airborne, droplet and contact isolation. Will continue comprehensive care for all of patients comorbid conditions. 2. DVT prophylaxis - Heparin 5000u sq tid. 3. Advance directives - Full code
--- NOTE | 2020-08-14 12:34 | EKG ---
Test Reason : Blood Pressure : / mmHG Vent. Rate : 094 BPM Atrial Rate : 094 BPM P-R Int : 134 ms QRS Dur : 078 ms QT Int : 338 ms P-R-T Axes : 081 064 057 degrees QTc Int : 422 ms NORMAL SINUS RHYTHM EARLY REPOLARIZATION NO PREVIOUS ECGS AVAILABLE Confirmed by JULIO HERMAN MD ([id number]) on 08/14/2020 12:34:30 PM Referred By: Confirmed By:JULIO HERMAN MD
== END 2020-08-14 01:08 | disposition left against medical advice (07) ==
LOC: JER 19:47
PROC: 3E0333Z Introduction of Anti-inflammatory into Peripheral Vein, Percutaneous Approach (ICD-10-PCS; principal; 2020-08-13)
DX: R55 Syncope and collapse (principal); Z3A.37 37 weeks gestation of pregnancy
CPT/HCPCS: 36415; 80053; 80307; 81003; 82550; 82803; 83605; 83735; 84443; 84484; 85025; 85610; 85730; 87086; 93005; 93010; 99284-25; U0003

== ENCOUNTER 2020-09-05 09:37 | Inpatient (IN) | payer OTHER ==
[2020-09-05] MEDS: ELECTROLYTE-148 SOLN 1,000 ML IV SCH (10:00)
--- OUTSIDE RECORDS SUMMARY | 2020-09-05 10:32 | XMS ---
[...] is protected by Article 27-F of the [place] State Public Health law. If you continue you may haveaccess to information: Regarding HIV / AIDS; Provided by facilities licensed or operated by the [facility] Office of Mental Health; or Provided by the [facility] Office for People With Developmental Disabilities. If such information is present, then the following [facility] mandated warning applies: This information has been [...] law may result in a fine or chcf sentence or both. A general authorization for the release of medical or other information is NOT sufficient authorization for further disclosure. Encounters Encounter Providers Location Date Indications Data Source(s ) Outpatient Attender: ANTONIO 05/13/2020 W10.8XXA [facility] PATRICEAdmitter: 11:45:00 PM Health Care FINN ALVAREZ EDT - Corpora tion 05/14/2020 05:40:00 PM EDT W10.8XXA Medications Medication Brand Start Product Dose Route Administrative Pharmacy [facility] Indications Reaction Description Data Name Date Form Instructions Instructions Source(s) Potassium Potass UNK active Potassiu m [facility] Chloride 1 ium 2019 meq Chloride 10 [place] Chlori 12:33: mEq/100 mL Healt h de 1 41 AM Injection 10 Care EDT meq IVPB Corporatio n Medication administered onsite Potassium Potassium 05/14/2020 40 UNK active P otassium [place] Chloride O Chloride O 12:33:13 AM meq C [facility] EDT Oral 40 meq Care PO Corporation Medication administered onsite Insurance Providers Payer name Policy type Policy ID Covered Covered republican's Policy P dotty / Coverage republican ID relationship to [facility] type [facility] [employer] [id number] SP [id number] R UNK UNK UNK UNK UNK UNK SELF PAY SP INSURANCE HMO CARL O [id number] [employer] Problems, Conditions, and Diagnoses Code Display Name Description Problem Type Effective Data Sour ce(s) Dates Z20.828 Contact with and CONTACT W AND Diagnosis 05/13/2020 [facility] (suspected) EXPOSURE TO OTH 11:45:00 PM [facility] exposure to other VIRAL EDT Care viral communicable COMMUNICABLE Rand oration diseases DISEASES J45.909 Unspecified UNSPECIFIED Diagnosis 05/13/2020 [place] asthma, ASTHMA, 11:45:00 PM [facility] uncomplicated UNCOMPLICATED EDT Care Corporation Y99.8 Other external OTHER EXTERNAL Diagnosis 05/13/2020 [place]andra cause status CAUSE STATUS 11:45:[address] [facility] EDT Care [employer] Y92.89 Other specified OTH PLACES THE Diagnosis 05/13/2020 [facility] as the PLACE OF 11:45:[address] [facility] [address] of OCCURRENCE OF THE EDT Care occurrence of the EXTERNAL CAUSE Cor poration external cause W10.9XXA Fall (on) (from) FALL (ON) (FROM) Diagnosis 05/13/2020 [facility] unspecified stairs UNSPECIFIED 11:45:00 PM [facility] Health and steps, initial STAIRS AND STEPS, EDT Care encounter INIT ENCNTR [employer] Z3A.22 22 weeks gestation 22 WEEKS Diagnosis 05/13/2020 [place]andra of GESTATION OF 11:45:[address] [facility] EDT Care [employer] R10.32 Left lower LEFT LOWER Diagnosis 05/13/2020 [place] quadrant pain QUADRANT PAIN 11:45:00 [facility] EDT Care [facility] S93.401A Sprain of SPRAIN OF Diagnosis 05/13/2020 [place] unspecified UNSPECIFIED 11:45:00 PM [facility] th ligament of right LIGAMENT OF RIGHT EDT Care ankle, initial ANKLE, INIT Corporati on encounter ENCNTR O26.892 Other specified OTH Diagnosis 05/13/2020 [place] alessandra related RELATED 11:45:00 PM [facility] conditions, second CONDITIONS, EDT Care trimester SECOND TRIMESTER Corporat ion T14.90XA Injury, INJURY, Diagnosis 05/13/2020 [place] unspecified, UNSPECIFIED, 11:45:[address] [facility] initial encounter INITIAL ENCOUNTER EDT Care [employer] Results ID Date Data Source [id number] 08/13/2020 09:20:00 PM EDT [facility] Name Value Range Interpretation Description Data Sup porting Code Source(s) Document(s ) SARS [facility] coronavirus 2 RNA This lab was ordered by [facility] and reported by [facility]. ID Date Data Source [id number] 05/14/2020 02:55:00 PM EDT [facility] [id number] Corporation Name Value Range Interpretation Description Data Sup porting Code Source(s) Document(s ) Leukocytes 6.4 k/mm3 4.5-11 <td> 05/14/2020 [place] [#/volume] in .5 14:55</td><td> [facility] Blood by k/mm3 WBC </td><td> Health Care Automated count Corporation 6.4
(4.5-11.5) k/mm3 </td> Erythrocyte 94.8 fL 80.0-9 <td> 05/14/2020 [place] mean 6.0 fL 14:55</td><td> [facility] corpuscular MCV </td><td> Health Care volume [[employer] volume] by 94.8 Automated count
(80.0-96.0) fL </td> Erythrocyte 33.4 % 32.0-3 <td> 05/14/2020 [place] mean 6.0 % 14:55</td><td> [facility] corpuscular MCHC </td><td> Health Care hemoglobin Corporation concentration 33.4 [Mass/volume] in Blood from
Fetus by (32.0-36.0) % Automated count </td> Erythrocytes 3.63 m/mm3 3.60-5 <td> 05/14/2020 [facility] r [#/volume] in .10 14:55</td><td> [facility] Blood m/mm3 RBC </td><td> Health Care Corporation 3.63
(3.60-5.10) m/mm3 </td> Hemoglobin 11.5 g/dL 11.5-1 <td> 05/14/2020 [place] [Mass/volume] 4.5 14:55</td><td> [facility] in Blood g/dL HGB </td><td> Health Care Corporation 11.5
(11.5-14.5) g/dL </td> Erythrocyte 12.9 % 11.5-1 <td> 05/14/2020 [place] distribution 4.5 % 14:55</td><td> County width [[employer] RDW </td><td> Health Car e volume] by Corporation Automated count 12.9
(11.5-14.5) % </td> Hematocrit 34.4 % 36.0-4 <td> 05/14/2020 [place] [Volume 7.0 % 14:55</td><td> County Fraction] of HCT Health Care Blood by </td><td><dilia [employer] Automated count raph styleCode="Bold "> 34.4 L </paragraph>
(36.0-47.0) % </td> Erythrocyte 31.7 pg 27.0-3 <td> 05/14/2020 [place] mean 1.5 pg 14:55</td><td> [facility] corpuscular MCH Health Care hemoglobin </td><td><dilia [employer] [Entitic mass] raph by Automated styleCode="Bold count "> 31.7 H </paragraph>
(27.0-31.5) pg </td> Monocytes/Leuko 6.1 % 0.0-11 <td> 05/14/2020 [facility] cytes [Pure .0 % 14:55</td><td> County number Monocytes. Health Care fraction] in </td><td> [employer] Blood by Automated count 6.1
(0.0-11.0) % </td> Lymphocytes 33.7 % 18.0-5 <td> 05/14/2020 [place] [#/volume] in 3.0 % 14:55</td><td> [facility] Blood by Lymphocytes Health Care Automated count </td><td> [employer] 33.7
(18.0-53.0) % </td> Platelets 256 k/mm3 160-41 <td> 05/14/2020 [place] [#/volume] in 0 14:55</td><td> [facility] Blood by k/mm3 Platelet Count Health Care Automated count </td><td> [employer] 256
(160-410) k/mm3 </td> Basophils 0.2 % 0.0-2. <td> 05/14/2020 [place] [#/volume] in 0 % 14:55</td><td> [facility] Blood by Basophils Health Care Automated count </td><td> [employer] 0.2
(0.0-2.0) % </td> Basophils+Eosin 0.9 % 0.0-5. <td> 05/14/2020 [facility] ophils+Monocyte 0 % 14:55</td><td> County s [#/volume] in Eosinophils Health Care Blood by </td><td> [employer] Automated count 0.9
(0.0-5.0) % </td> Platelet mean 10.5 fL 9.8-12 <td> 05/14/2020 [facility] r volume [Entitic .8 fL 14:55</td><td> County volume] in MPV </td><td> Health Care Blood by [employer] Automated count 10.5
(9.8-12.8) fL </td> Potassium 4.2 mEq/L 3.5-5. <td> 05/14/2020 [place] [Moles/volume] 1 14:55</td><td> County in Serum or mEq/L Potassium-Serum Health Care Plasma </td><td> [employer] 4.2
(3.5-5.1) mEq/L
Note Significant Change in Values

(3.5-5.1) mEq/L </td> Sodium 136 mEq/L 135-14 <td> 05/14/2020 [place] [Moles/volume] 5 14:55</td><td> County in Serum or mEq/L Sodium-Serum Health Care Plasma </td><td> [employer] 136
(135-145) mEq/L </td> Neutrophils [#] 58.8 % 36.0-7 <td> 05/14/2020 [facility] in Body fluid 3.0 % 14:55</td><td> County by Manual count Neutrophils Health Care </td><td> [employer] 58.8
(36.0-73.0) % </td> Chloride 109 mEq/L 98-107 <td> 05/14/2020 [place] [Moles/volume] mEq/L 14:55</td><td> County in Serum or Chloride Health Care Plasma </td><td><dilia [employer] raph styleCode="Bold "> 109 H </paragraph>
(98-107) mEq/L </td> Immature 0.3 % 0.0-0. <td> 05/14/2020 [place] granulocytes/10 5 % 14:55</td><td> [facility] 0 leukocytes in IG% </td><td> [facility] Blood by [employer] Automated count 0.3
(0.0-0.5) %
The IG fraction represents metamyelocytes, myelocytes and/or
promyelocytes and is only reported as part of the automated
differential when found at a percentage of less than 6.
If higher than 6%, a manual differential will be performed.

(0.0-0.5) % </td> Glucose 87 mg/dL 70-105 <td> 05/14/2020 [place] [Mass/volume] mg/dL 14:55</td><td> [facility] in Blood Glucose-Serum [facility] </td><td> [facility] 87
(70-105) mg/dL </td> Aspartate 14 U/L 4-35 <td> 05/14/2020 [place] aminotransferas U/L 14:55</td><td> [facility] e [Enzymatic AST (SGOT) [facility] activity/volume </td><td> [facility] ] in Serum or Plasma 14
(4-35) U/L </td> Bilirubin.total < 0.2 <td> 05/14/2020 [facility] [Mass/volume] 14:55</td><td> [facility] in Blood Bilirubin - [facility] Total [employer] </td><td> < 0.2
(0.2-1.3) mg/dL </td> Creatinine 0.58 mg/dL 0.57-1 <td> 05/14/2020 [place] [Moles/volume] .11 14:55</td><td> [facility] in Serum or mg/dL Creatinine. [facility] Plasma </td><td> [employer] 0.58
(0.57-1.11) mg/dL </td> Urea nitrogen 4 mg/dL 6-22 <td> 05/14/2020 [facility] r [Mass/volume] mg/dL 14:55</td><td> County in Blood BUN Health Care </td><td><Zocere raph styleCode="Bold "> 4 L </paragraph>
(6-22) mg/dL </td> Carbon dioxide, 21 mEq/L 22-30 <td> 05/14/2020 [facility] total mEq/L 14:55</td><td> [facility] [Moles/volume] CO2 Health Care in Serum or </td><td><Zocere Plasma raph styleCode="Bold "> 21 L </paragraph>
(22-30) mEq/L </td> Alanine 11 U/L 6-55 <td> 05/14/2020 [place] aminotransferas U/L 14:55</td><td> [facility] e [Enzymatic ALT (SGPT) Health Care activity/volume </td><td> [employer] ] in Serum or Plasma 11
(6-55) U/L </td> Anion gap in 6 mEq/L 7-13 <td> 05/14/2020 [place] Serum or Plasma mEq/L 14:55</td><td> [facility] Anion Gap Health Care </td><td><Zocere raph styleCode="Bold "> 6 L </paragraph>
(7-13) mEq/L </td> Hemolysis index No <td> 05/14/2020 [facility] of Serum or Hemolysis 14:55</td><td> [facility] Plasma Hemolysis Index Health Care </td><td> [employer] No Hemolysis
</td> Globulin 3.2 gm/dL 2.9-4. <td> 05/14/2020 [place] [Mass/volume] 0 14:55</td><td> [facility] in Serum gm/dL Globulin Health Care </td><td> [employer] 3.2
(2.9-4.0) gm/dL </td> Proteins - 6.2 g/dL 5.6-7. <td> 05/14/2020 [place] Total 5 g/dL 14:55</td><td> [facility] Proteins - Health Care Total [employer] </td><td> 6.2
(5.6-7.5) g/dL </td> Calcium 8.5 mg/dL 8.6-10 <td> 05/14/2020 [place] [Mass/volume] .2 14:55</td><td> County in Blood mg/dL Calcium Health Care </td><td><Zocere raph styleCode="Bold "> 8.5 L </paragraph>
(8.6-10.2) mg/dL </td> Albumin 3.0 g/dL 3.4-4. <td> 05/14/2020 [place] [Mass/volume] 8 g/dL 14:55</td><td> County in Serum or Albumin Health Care Plasma </td><td><Zocere raph styleCode="Bold "> 3.0 L </paragraph>
(3.4-4.8) g/dL </td> Icteric index Not <td> 05/14/2020 [facility] r of Serum or Icteric 14:55</td><td> [facility] Plasma Icteric Index Health Care </td><td> [employer] Not Icteric
</td> Prothrombin 11.9 secs 9.8-12 <td> 05/13/2020 [place] time (PT) .0 23:10</td><td> [facility] secs Prothrombin Health Care Time. [facility] </td><td> 11.9
(9.8-12.0) secs </td> Lipemic index No Lipemia <td> 05/14/2020 [facility] er of Serum or 14:55</td><td> County Plasma Lipemia Index Health Care </td><td> [employer] No Lipemia
</td> Phosphate 3.4 mg/dL 2.3-4. <td> 05/14/2020 [place] [Mass/volume] 7 14:55</td><td> County in Serum or mg/dL Inorganic Health Care Plasma Phosphorus [facility] </td><td> 3.4
(2.3-4.7) mg/dL </td> Amylase 26 U/L 22-100 <td> 05/13/2020 [place] [Enzymatic U/L 23:10</td><td> County activity/volume Amylase Level Health Car e ] in Serum or </td><td> Corporation Plasma 26
(22-100) U/L </td> aPTT panel - 39.6 secs 25.0-3 <td> 05/13/2020 [place] Platelet poor 2.0 23:10</td><td> [facility] plasma secs Partial [facility] Thromboplastin [facility] Time </td><td><dilia raph styleCode="Bold "> 39.6 H </paragraph>
(25.0-32.0) secs </td> Magnesium 1.6 mg/dL 1.6-2. <td> 05/14/2020 [place] [Mass/volume] 6 14:55</td><td> [place] in Serum or mg/dL Magnesium Level [facility] Care Plasma </td><td> Corporation 1.6
(1.6-2.6) mg/dL </td> ID Date Data Source [id number] 05/13/2020 11:00:00 PM EDT [facility] [id number] Corporation Name Value Range Interpretation Description Data Source(s ) Supporting Code Document(s ) ABO-Rh Type O POS <td> [place] 05/13/2020 [facility] 23:00</td><td> Care ABO-Rh Type Corporation </td><td> O POS
</td> Antibody NEG <td> [place] Screen 05/13/2020 [facility] 23:00</td><td> Care Antibody Corporation Screen </td><td> NEG
</td> Specimen 05/16/20 <td> [place] expiration 20 23:59 05/13/2020 [facility] date of Blood 23:00</td><td> Care Specimen Corporation Expiration Date </td><td> 05/16/2020 23:59
</td> ID Date Data Source [id number] 05/13/2020 12:00:00 AM EDT [facility] [employer] Name Value Range Interpretation Code Description Data Sandy rce(s) Supporting Document(s ) SARS-COV-2 [place] RNA RT-PCR [facility] This lab was ordered by [facility] and reported by [facility]. Procedure Vital Signs ID Date Data Source UNK [...] 18.0000 {} Normal (applies to 18.0000 {} [place] rate Set non-numeric results) Coun ty Health Care Corporati on Heart rate 69.0000 {} Normal (applies to 69.0000 {} [place] al[place]andra non-numeric results) Coun ty Health Care Corporati on Body temperature 97.4000 {} Normal (applies to 97.4000 {} [place] non-numeric results) Coun ty Health Care Corporati on wt - obtain Normal (applies to {} [place] non-numeric results) Coun ty [facility] Care Corporati on weight - kg 55.9000 {} Normal (applies to 55.9000 {} [place] non-numeric results) Coun ty Health Care Corporati on Patient Treatment Plan of Care Planned Activity Planned Date Details Description Data Source (s) Potassium Chloride 1 05/14/2020 12:33:41 [facility] Care Cor poration Potassium Chloride O 05/14/2020 12:33:13 [facility] Care Cor poration
[2020-09-05] MEDS ORDERED: AMPICILLIN SODIUM 2 GM VIAL ONE (11:00)
[2020-09-05 11:03] LABS: BASO % 0.2 % (0-2.0); EOS % 0.6 % (0-4.5); HEMATOCRIT 32.5 % (32.4-45.2); HEMOGLOBIN 11.1 GM/dL (10.7-15.3); LYMPH % 24.8 % (8-40); MCH 32.7 pg (25.7-33.7); MCHC 34.3 g/dl (32.0-36.0); MEAN CELL VOLUME 95.3 fl (80-96); MEAN PLT VOLUME 9.3 fl (7.5-11.1); MONO % 5.6 % (3.8-10.2); NEUT % 68.8 % (42.8-82.8); PLATELET COUNT 215 K/MM3 (134-434); RBC 3.41 M/mm3 (3.60-5.2); RDW 13.4 % (11.6-15.6); WHITE BLOOD COUNT 6.6 K/mm3 (4.0-10.0)
--- NOTE | 2020-09-05 11:05 | HP ---
Past Medical History - Primary Care Physician PCP:: Satya Ramirez - Admission Chief Complaint: 39 weeks, labor History of Present Illness: 19 yo f 39 weeks, care with DR Dobbs , no complication, in labor , no rom, no bleediing History Source: Patient Limitations to Obtaining History: No Limitations - Past Medical History ...: 2 ...Para: 1 ...Term: 1 ...EDC by Sono: 09/12/20 - Past Surgical History Hx Myomectomy: No Hx Transabdominal Cerclage: No - Smoking History Smoking history: Never smoked Have you smoked in the past 12 months: No - Social History Usual Living Arrangement: Yes: With Significant Other History of Recent Travel: No Home Medications - Allergies Allergies/Adverse Reactions: Allergies Allergy/AdvReac Type Severity Reaction Status Date / Time No Known Allergies Allergy Verified 05/13/20 21:25 - Home Medications Home Medications: Ambulatory Orders Acetaminophen [Tylenol] 650 mg PO QID PRN #20 capsule 12/06/19 Clotrimazole [Ringworm] 14.2 gm TP BID #1 cream..g. 12/06/19 Review of Systems - Review of Systems Constitutional: reports: No Symptoms Eyes: reports: No Symptoms HENT: reports: No Symptoms Neck: reports: No Symptoms Cardiovascular: reports: No Symptoms Respiratory: reports: No Symptoms Gastrointestinal: reports: No Symptoms Genitourinary: reports: No Symptoms Breasts: reports: No Symptoms Reported Musculoskeletal: reports: No Symptoms Integumentary: reports: No Symptoms Neurological: reports: No Symptoms Endocrine: reports: No Symptoms Hematology/Lymphatic: reports: No Symptoms Psychiatric: reports: No Symptoms Physical Exam - Maternity Constitutional: Yes: Well Nourished, No Distress, Calm Eyes: Yes: WNL, Conjunctiva Clear, EOM Intact HENT: Yes: WNL, Atraumatic, Normocephalic Neck: Yes: WNL, Supple, Trachea Midline Cardiovascular: Yes: WNL, Regular Rate and Rhythm Breast(s): Yes: WNL - Abdominal Exam/OB Fundal Height: 38 Number of Fetuses: Single Presentation: Vertex Contractions: Yes Regularity: Regular Intensity: Mod/Strong Monitor Mode: External Heart Rate Location: [facility] Category: I Accelerations: Non-Uniform Decelerations: None - Vaginal Exam/OB Vaginal Bleeding: Bloody Show Speculum Exam: No Dilatation (cm): 5 Effacement (%): 80 Amniotic Membrane Status: Intact Nitrazine Test: Negative Presentation: Vertex/Position Station: -2 - Physical Exam Musculoskeletal: Yes: WNL Extremities: Yes: WNL Edema: Yes Edema: LLE: Trace, RLE: Trace Integumentary: Yes: WNL Deep Tendon Reflex Grade: Normal +2 Psychiatric: Yes: WNL Hemorrhage Risk Assessment - Risk Factors High Risk Factors: Yes: None Risk Score: 0 Risk Level: Low Risk Problem List - Problems (1) with 39 completed weeks gestation Code(s): Z3A.39 - 39 WEEKS GESTATION OF (2) Labor established Code(s): [id number] - Assessment/Plan admit for vaginal delivery FHM requesting epidural
[2020-09-05 11:11] LABS: INR 0.93 (0.83-1.09)
[2020-09-05 11:14] LABS: ACTIVATED PTT 27.1 SECONDS (25.2-36.5)
[2020-09-05] MEDS ORDERED: FENTANYL/BUPIVACAINE/NS/PF - PCEA - 50 ML DISP.SYRIN EP ONE (11:24)
[2020-09-05] MEDS ORDERED: PCA PUMP NR ONE (11:25)
[2020-09-05 11:36] LABS: ALBUMIN 2.2 g/dl (3.4-5.0); BILIRUBIN,TOTAL 0.2 mg/dL (0.2-1); BLOOD UREA NITROGEN 10.3 mg/dL (7-18); CALCIUM 7.7 mg/dL (8.5-10.1); CREATININE 0.4 mg/dL (0.55-1.3); POTASSIUM 3.4 mmol/L (3.5-5.1); TOT PROT 5.8 g/dl (6.4-8.2)
[2020-09-05] MEDS: FENTANYL/BUPIVACAINE/NS/PF - PCEA - 50 ML DISP.SYRIN EP SCH (11:40)
[2020-09-05] MEDS ORDERED: NALOXONE HCL 0.4 MG/ML VIAL IVPUSH PRN (11:55)
--- NOTE | 2020-09-05 12:16 | PN ---
Progress Note (short form) - Note Progress Note: cx 6 cm 80 vx -2 mi, fhr cat 1, irregular contraction , has epidural advised pitocin, stimulation, risks discussed Problem List - Problems (1) with 39 completed weeks gestation Code(s): Z3A.39 - 39 WEEKS GESTATION OF (2) Labor established Code(s): [id number] -
[2020-09-05] MEDS ORDERED: OXYTOCIN 30 UNITS in 0.9% NS 30 UNIT/500 ML INFUS.BAG IVPB ONE (12:20)
[2020-09-05] MEDS: OXYTOCIN 30 UNITS in 0.9% NS 30 UNIT/500 ML INFUS.BAG IVPB SCH (12:20)
[2020-09-05 12:38] LABS: URINE APPEARANCE CLOUDY; URINE BILIRUBIN NEGATIVE (NEGATIVE); URINE COLOR YELLOW; URINE GLUCOSE (UA) NEGATIVE (NEGATIVE); URINE KETONE NEGATIVE (NEGATIVE); URINE LEUK ESTERASE NEGATIVE (NEGATIVE); URINE NITRITE NEGATIVE (NEGATIVE); URINE PROTEIN NEGATIVE (NEGATIVE)
[2020-09-05 12:50] LABS: COCAINE, UR NEGATIVE ng/ml (CUTOFF=300); OPIATES, URI NEGATIVE ng/ml (CUTOFF=300); PHENCYCLIDINE,URINE NEGATIVE ng/ml (CUTOFF=25); URINE BARBITURATES NEGATIVE ng/ml (CUTOFF=200); URINE BENZODIAZEPINES NEGATIVE ng/ml (CUTOFF=200)
[2020-09-05 12:53] LABS: METHADONE, UR NEGATIVE ng/ml (CUTOFF=300); URINE AMPHETAMINES NEGATIVE ng/ml (CUTOFF=500)
[2020-09-05 13:00] VITALS: BMI 25.4
[2020-09-05] MEDS ORDERED: LIDOCAINE HCL 1% PRESERVATIVE FREE - 30ML VIAL ONE (13:52)
[2020-09-05] MEDS ORDERED: OXYTOCIN 20 UNITS in 0.9% NS 20 UNIT/1,000 ML INFUS.BAG IV ONE ×2 (13:52→15:57)
[2020-09-05] MEDS: OXYTOCIN 20 UNITS in 0.9% NS 20 UNIT/1,000 ML INFUS.BAG IV SCH ×2 (13:58→16:00)
[2020-09-05] MEDS ORDERED: WITCH HAZEL 50% (TUCKS) 40 PAD/JAR PAD TP PRN (14:07)
[2020-09-05] MEDS ORDERED: BENZOCAINE 28 GM HEMORRHOIDAL OINTMENT TP PRN (14:07)
[2020-09-05] MEDS ORDERED: METHYLERGONOVINE MALEATE 0.2 MG/1 ML AMP IM PRN (14:07)
[2020-09-05] MEDS ORDERED: BISACODYL 10 MG SUPP.RECT RC PRN (14:07)
[2020-09-05] MEDS ORDERED: BENZOCAINE 20% 57 GM BOTTLE TP PRN (14:07)
--- NOTE | 2020-09-05 14:10 | PN ---
Delivery - Delivery Vaginal Delivery: Spontaneous Type of Anesthesia: Epidural (head delivered BELKIS, no cord, ant. and post shoulder with no difficulty , live baby bor 9/9 , placenta complete , no laceration, EBL 300 cc , baby bonded with mom , no complication) Episiotomy/Laceration: None Delivery, Single - Feeding Plan Initial Plan: Elected not to breastfeed exclusively throughout hospitalization
[2020-09-05 14:58] LABS: CORD PCO2 58.7 mmHg (30-78); CORD pH 7.265 (7.14-7.44)
[2020-09-05 15:08] LABS: CORD BASE EXCESS -1.3 mmol/L (0-2); CORD HCO3 24.3 mmHg (20-29); CORD PCO2 44.5 mmHg (30-78); CORD pH 7.356 (7.14-7.44)
[2020-09-05] MEDS ORDERED: ACETAMINOPHEN 325 MG TABLET (FP) ONE (16:01)
[2020-09-05] MEDS ORDERED: IBUPROFEN 600 MG TABLET (FP) PO ONE (16:01)
[2020-09-05] MEDS: ACETAMINOPHEN 325 MG TABLET (FP) PO PRN ×2 (16:10→23:07)
[2020-09-05] MEDS: IBUPROFEN 600 MG TABLET (FP) PO PRN ×2 (16:10→23:07)
[2020-09-05] MEDS ORDERED: BUTORPHANOL TARTRATE 2 MG/ML VIAL ONE (16:43)
[2020-09-05] MEDS ORDERED: PROMETHAZINE HCL 25 MG/1 ML VIAL ONE (16:43)
[2020-09-05] MEDS: FERROUS SO4 325 MG TABLET (FP) PO SCH (21:31)
[2020-09-06] MEDS: ACETAMINOPHEN 325 MG TABLET (FP) PO PRN ×3 (06:35→20:28)
[2020-09-06] MEDS: IBUPROFEN 600 MG TABLET (FP) PO PRN ×4 (06:35→20:29)
[2020-09-06 08:20] LABS: BASO % 0.3 % (0-2.0); EOS % 2.2 % (0-4.5); HEMATOCRIT 29.8 % (32.4-45.2); HEMOGLOBIN 10.3 GM/dL (10.7-15.3); LYMPH % 34.9 % (8-40); MCH 32.9 pg (25.7-33.7); MCHC 34.6 g/dl (32.0-36.0); MEAN CELL VOLUME 95.2 fl (80-96); MEAN PLT VOLUME 9.5 fl (7.5-11.1); MONO % 7.2 % (3.8-10.2); NEUT % 55.4 % (42.8-82.8); PLATELET COUNT 182 K/MM3 (134-434); RBC 3.13 M/mm3 (3.60-5.2); RDW 13.6 % (11.6-15.6); WHITE BLOOD COUNT 7.9 K/mm3 (4.0-10.0)
[2020-09-06] MEDS: PRENATAL VITAMINS W/ FOLIC ACID TABLET (FP) PO SCH (10:13)
[2020-09-06] MEDS: FERROUS SO4 325 MG TABLET (FP) PO SCH ×2 (10:13→21:10)
[2020-09-06] MEDS ORDERED: oxyCODONE HCL 5 MG TABLET PO ONE (13:45)
[2020-09-06] MEDS ORDERED: oxyCODONE HCL 5 MG TABLET ONE (13:58)
[2020-09-06] MEDS ORDERED: diphenhydrAMINE HCL 25 MG CAPSULE (FP) PO ONE (16:30)
--- NOTE | 2020-09-06 17:39 | PN ---
Progress Note (short form) - Note Progress Note: ppd 1, doingwell, ambulating , has ithing CBC, BMP 09/06/20 07:49 09/05/20 10:30 Last Vital Signs Temp Pulse Resp BP Pulse Ox 97.3 F L 73 20 98/62 96 09/06/20 13:15 09/06/20 13:15 09/06/20 13:15 09/06/20 13:15 09/05/20 23:00 abdomen soft ,non tender , uteus firm lochia mild no calf tenderness plan ambulate for d/c home in am Problem List - Problems (1) with 39 completed weeks gestation Code(s): Z3A.39 - 39 WEEKS GESTATION OF (2) Labor established Code(s): [id number] -
[2020-09-06] MEDS: ELECTROLYTE-148 SOLN 1,000 ML IV SCH (19:22)
[2020-09-06] MEDS: OXYTOCIN 20 UNITS in 0.9% NS 20 UNIT/1,000 ML INFUS.BAG IV SCH (19:23)
[2020-09-06] MEDS: FENTANYL/BUPIVACAINE/NS/PF - PCEA - 50 ML DISP.SYRIN EP SCH (19:23)
[2020-09-06] MEDS: OXYTOCIN 30 UNITS in 0.9% NS 30 UNIT/500 ML INFUS.BAG IVPB SCH (19:23)
[2020-09-06] MEDS ORDERED: SENNOSIDES/DOCUSATE COMBO (SENNA PLUS) TABLET (UD) PO PRN (22:00)
[2020-09-07] MEDS: ACETAMINOPHEN 325 MG TABLET (FP) PO PRN (08:51)
[2020-09-07] MEDS: IBUPROFEN 600 MG TABLET (FP) PO PRN (08:52)
[2020-09-07] MEDS: FERROUS SO4 325 MG TABLET (FP) PO SCH (09:44)
[2020-09-07] MEDS: PRENATAL VITAMINS W/ FOLIC ACID TABLET (FP) PO SCH (09:44)
[2020-09-07 11:25] VITALS: BP 128/82; PULSE 78; TEMP 98.7
--- NOTE | 2020-09-07 12:01 | DS ---
Physical Exam-FLOW NURSE Vital Signs: Vital Signs Temperature 98.7 F 09/07/20 09:00 Pulse Rate 78 09/07/20 09:00 Respiratory Rate 20 09/07/20 09:00 Blood Pressure 128/82 09/07/20 09:00 O2 Sat by Pulse Oximetry (%) 96 09/05/20 23:00 Constitutional: Yes: Well Nourished, No Distress, Calm Eyes: Yes: WNL, Conjunctiva Clear, EOM Intact HENT: Yes: WNL, Atraumatic, Normocephalic Neck: Yes: WNL, Supple, Trachea Midline Cardiovascular: Yes: WNL, Regular Rate and Rhythm Respiratory: Yes: WNL, Regular, CTA Bilaterally Gastrointestinal: Yes: WNL ...Rectal Exam: Yes: WNL Renal/: Yes: WNL ....Post : Yes: Uterus firm, Uterus non-tender, Slight lochia rubra Breast(s): Yes: WNL Musculoskeletal: Yes: WNL Extremities: Yes: WNL Edema: No Integumentary: Yes: WNL Neurological: Yes: WNL, Alert, Oriented ...Motor Strength: WNL Psychiatric: Yes: WNL, Alert, Oriented Labs: CBC, BMP 09/06/20 07:49 09/05/20 10:30 Delivery - Delivery Vaginal Delivery: Spontaneous Type of Anesthesia: Epidural Episiotomy/Laceration: None EBL (cc): 300 Delivery, Single - Stages of Labor Date 1st Stage Initiatied: 09/05/20 Time 1st Stage Initiated: 06:00 Date 2nd Stage Initiated: 09/05/20 Time 2nd Stage Initiated: 13:40 Date of Delivery: 09/05/20 Time of Delivery: 13:58 Time Placenta Delivered: 14:00 Placenta: Yes: Spontaneous - Condition of Turn Laster/Loom Checker Present: No Gender: Male Weight: 7 lb 13 oz Position: Left, OA Total Hours ROM (Hrs/Mins): 1HR/43MINS - 1 Minute Total Score: 9 5 Minutes Total Score: 9 - [place] Feeding Plan Initial Plan: Elected not to breastfeed exclusively throughout hospitalization Discharge Summary Problems reviewed: Yes Reason For Visit: LABOR ADMIT Current Active Problems Labor established (Acute) with 39 completed weeks gestation (Acute) Procedures: Principal: Hospital Course: no complication Condition: Good - Instructions Diet, Activity, Other Instructions: regular diet , if fever, pain, heavy vaginal bleeding ,call md follow up [facility] care 4 weeks Referrals: Satya Ramirez MD [Staff Physician] - Disposition: HOME - Home Medications Comprehensive Discharge Medication List: Ambulatory Orders Acetaminophen [Tylenol] 650 mg PO QID PRN #20 capsule 12/06/19 Clotrimazole [Ringworm] 14.2 gm TP BID #1 cream..g. 12/06/19 Ibuprofen [Motrin -] 600 mg PO QID #28 tablet 09/06/20 Miscellaneous Medical Supply [Breast Pump, Electronic] 1 each NR ASDIR #1 unit 09/06/20 Docusate Sodium [Colace] 100 mg PO DAILY PRN #30 capsule 09/07/20 Miscellaneous Medical Supply [Breast Pump, Electronic] 1 each NR ASDIR #1 unit 09/07/20
== END 2020-09-07 12:50 | disposition home or self-care (01) | DRG 560 ==
LOC: JLDR 09:37 → J3W 16:44
PROVIDERS: ADMIT Obstetrics & Gynecology; ATTEND Obstetrics & Gynecology
PROC: 10E0XZZ Delivery of Products of Conception, External Approach (ICD-10-PCS; principal; 2020-09-05)
DX: O80 Encounter for full-term uncomplicated delivery (principal); Z3A.39 39 weeks gestation of pregnancy; Z37.0 Single live birth
CPT/HCPCS: 36415; 36600; 59409; 80053; 80307; 81003; 82803; 85025; 85610; 85730; 86762; 86780; 86850; 86900; 86901; 87340; 87389; C9803; U0003

== ENCOUNTER 2021-05-24 15:37 | Emergency (ER) | payer OTHER ==
[2021-05-24 15:53] VITALS: BP 126/84; PULSE 100; TEMP 97.8; BMI 19.7
[2021-05-24] MEDS ORDERED: ACETAMINOPHEN 500 MG TABLET (FP) PO ONE (17:04)
[2021-05-24] MEDS ORDERED: ACETAMINOPHEN 500 MG TABLET (FP) ONE (17:12)
[2021-05-24 18:20] LABS: URINE APPEARANCE CLEAR; URINE BILIRUBIN NEGATIVE (NEGATIVE); URINE COLOR YELLOW; URINE GLUCOSE (UA) NEGATIVE (NEGATIVE); URINE KETONE NEGATIVE (NEGATIVE); URINE LEUK ESTERASE NEGATIVE (NEGATIVE); URINE NITRITE NEGATIVE (NEGATIVE); URINE PROTEIN NEGATIVE (NEGATIVE); URINE UROBILINOGEN 0.2 mg/dL (0.2-1.0)
[2021-05-24 18:22] LABS: HCG,QUALITATIVE URINE Negative
== END 2021-05-24 19:28 | disposition home or self-care (01) ==
LOC: JER 15:37 → JERFT 15:37
DX: M25.532 Pain in left wrist (principal); M79.671 Pain in right foot
CPT/HCPCS: 73110-TC-LT-FY; 73130-TC-LT-FY; 73630-TC-RT-FY; 81003; 84703; 99285-25